=== PATIENT | female | born 1985 | race Caucasian/White ===

== ENCOUNTER → 2020-07-03 12:52 | Outpatient (BNVA) | payer OTHER, SELFPAY | PROVIDERS: Visit Provider Obstetrics & Gynecology ==

== ENCOUNTER 2021-04-22 12:13 | Outpatient (REF) | payer OTHER, SELFPAY ==
[2021-04-22 12:32] LABS: MANUAL DIFF FLAG NO
[2021-04-22 12:51] LABS: Basophils Absolute Auto 0.1 X10*3/uL (0.0-0.2); Basophils Percent Auto 0.5 % (0-2); Eosinophils Absolute Auto 0.9 X10*3/uL (0.0-0.4); Eosinophils Percent Auto 9.3 % (0-4); Hematocrit 39.2 % (37.0-47.0); Hemoglobin 12.6 g/dl (12.0-16.0); Imm Gran Abs Auto 0.01 X10*3/uL (0.00-0.03); Imm Gran Pct Auto 0.1 % (0.0-0.4); Lymphocytes Absolute Auto 3.2 X10*3/uL (1.2-4.9); Lymphocytes Percent Auto 33.4 % (20-40); Mean Corpuscular HGB Conc 32.1 g/dl (31.0-35.0); Mean Corpuscular Hemoglobin 29.4 pg (27.0-33.0); Mean Corpuscular Volume 91.4 fL (80.0-98.0); Mean Platelet Volume 9.6 fL (9.4-12.3); Monocytes Absolute Auto 0.4 X10*3/uL (0.1-1.2); Monocytes Percent Auto 3.9 % (2-11); Neutrophils Percent Auto 52.8 % (45-73); Platelet Count 357 X10*3/uL (160-400); Red Blood Count 4.29 X10*6/uL (4.20-5.50); Red Cell Distribution Width 14.3 % (11.0-16.0); White Blood Count 9.5 X10*3/uL (4.8-10.8)
[2021-04-22 13:22] LABS: Anion Gap 10 (12-20); Blood Urea Nitrogen 15 mg/dL (9-16); Calcium 9.5 mg/dL (8.4-10.2); Carbon Dioxide 22 mmol/L (22-29); Chloride 111 mmol/L (96-108); Estimated Glomerular Filt Rate > 60; Glucose Random 89 mg/dL (60-115); Potassium 4.4 mmol/L (3.3-5.1); Sodium 139 mmol/L (135-145)
== END 2021-04-22 12:14 | disposition home or self-care (01) ==
LOC: HO.LAB 12:13
PROVIDERS: Visit Provider Clinical Nurse Specialist Psychiatric/Mental Health, Child & Adolescent
DX: Z51.81 Encounter for therapeutic drug level monitoring (principal)
CPT/HCPCS: 36415; 80048; 85025

== ENCOUNTER 2022-03-04 11:10 | Outpatient (REF) | payer OTHER, SELFPAY ==
[2022-03-05 03:36] LABS: CT PCR NOT DETECTED (Not Detect.); NG PCR NOT DETECTED (Not Detect.)
[2022-03-05 10:15] LABS: BV Int Neg Control Negative (Negative); BV Int Pos Control Positive (Positive)
[2022-03-08 00:09] LABS: HPV 16 RNA NOT DETECTED (NOT DETECTED); HPV mRNA E6/E7 rflx Detected (Not Detected)
== END 2022-03-04 11:11 | disposition home or self-care (01) ==
LOC: HO.LNP 11:10
PROVIDERS: Visit Provider Advanced Practice Midwife
DX: Z01.419 Encounter for gynecological examination (general) (routine) without abnormal findings (principal); Z11.51 Encounter for screening for human papillomavirus (HPV)
CPT/HCPCS: 87480; 87491; 87510; 87591; 87624; 87625; 87660; 88142

== ENCOUNTER 2022-03-05 08:42 | Outpatient (REF) | payer OTHER, SELFPAY ==
--- NOTE | ~2022-03-05 | MM_ITS ---
EXAMINATION: MM DIAGNOSTIC DIGITAL BREAST TOMOSYNTHESIS, BILATERAL US DIAGNOSTIC ULTRASOUND BREAST, BILATERAL CLINICAL INFORMATION: 36-year-old with palpable areas noted at routine clinical exam right 9:00 and left 2:00. No palpable concern noted by patient. No discharge. No known family history breast cancer. No prior breast imaging. The lifetime risk of breast cancer based on the Tyrer-Cuzick Model is 9%. COMPARISON: None (current study represents initial baseline exam). TECHNIQUE: Digital breast tomosynthesis is performed in both the craniocaudal and mediolateral oblique views along with computer-aided detection (CAD). Synthesized 2D images are generated from the tomosynthesis. Ultrasound bilateral breasts is targeted to the areas of clinical concern outer right breast and upper outer left breast. Grayscale imaging and color Doppler are performed without and with harmonics. FINDINGS: There are scattered areas of fibroglandular density (ACR BI-RADS breast composition Category b). There is no mass or architectural abnormality or abnormal calcifications. No skin thickening or coarsening of the Tyler's ligaments. The axilla and skin contours are unremarkable. No mammographic correlate for clinical concern. Ultrasound bilateral breasts demonstrate no cystic or solid mass, architectural abnormality, or focal duct ectasia. No skin thickening or edema tracking in soft tissue planes. Results are discussed with the patient at time of visit. MM/MM tomosynthesis diagnostic BI IMPRESSION: -No mammographic evidence of malignancy. -Unremarkable bilateral targeted breast ultrasound. ASSESSMENT: BI-RADS 1: Negative RECOMMENDATION: 1. Patient should be managed based on the clinical impression. If clinically indicated, further evaluation may be considered with surgical consult. Decision to proceed with biopsy should be based on clinical grounds and degree of clinical concern. 2. Otherwise, routine annual screening mammography, beginning age 40, or earlier as clinical risk factors warrant. This patient's information was entered into a reminder system with a target due date for their next mammogram.
== END 2022-03-05 08:43 | disposition home or self-care (01) ==
LOC: HO.MAMMO 08:42
PROVIDERS: Visit Provider Advanced Practice Midwife
DX: N63.15 Unspecified lump in the right breast, overlapping quadrants (principal); N63.21 Unspecified lump in the left breast, upper outer quadrant
CPT/HCPCS: 76642; 77062; 77066

== ENCOUNTER 2022-07-29 09:04 | Outpatient (REF) | payer OTHER, SELFPAY ==
[2022-07-29 15:04] LABS: CT PCR NOT DETECTED (Not Detect.); NG PCR NOT DETECTED (Not Detect.)
[2022-07-30 09:17] LABS: BV Int Neg Control Negative (Negative); BV Int Pos Control Positive (Positive)
== END 2022-07-29 09:05 | disposition home or self-care (01) ==
LOC: HO.LNP 09:04
PROVIDERS: Visit Provider Advanced Practice Midwife
DX: N92.1 Excessive and frequent menstruation with irregular cycle (principal); A60.00 Herpesviral infection of urogenital system, unspecified; B37.49 Other urogenital candidiasis; F17.210 Nicotine dependence, cigarettes, uncomplicated; Z87.42 Personal history of other diseases of the female genital tract; Z20.2 Contact with and (suspected) exposure to infections with a predominantly sexual mode of transmission; Z97.5 Presence of (intrauterine) contraceptive device
CPT/HCPCS: 0353U; 87255; 87480; 87510; 87660; 99212

== ENCOUNTER 2023-02-16 13:20 | Outpatient (REF) | payer OTHER, SELFPAY ==
[2023-02-16 18:42] LABS: CT PCR NOT DETECTED (Not Detect.); NG PCR NOT DETECTED (Not Detect.)
[2023-02-17 11:20] LABS: BV Int Neg Control Negative (Negative); BV Int Pos Control Positive (Positive)
== END 2023-02-16 13:21 | disposition home or self-care (01) ==
LOC: HO.LAB 13:20
PROVIDERS: Visit Provider Advanced Practice Midwife
DX: N92.1 Excessive and frequent menstruation with irregular cycle (principal); F17.210 Nicotine dependence, cigarettes, uncomplicated; Z97.5 Presence of (intrauterine) contraceptive device; Z20.2 Contact with and (suspected) exposure to infections with a predominantly sexual mode of transmission
CPT/HCPCS: 0353U; 81025; 87480; 87510; 87660; 99212

== ENCOUNTER 2023-02-16 13:22 | Outpatient (AMB) | payer OTHER, SELFPAY ==
--- NOTE | 2023-02-16 13:27 | A.OFFVIS_ITS ---
Intake Vital Signs 02/16/23 13:28 Height 5 ft 6 in Weight 219 lb BMI 35.3 BP 100/60 Intake Visit Reasons: irregular bleeding Intake Note: Bleeding for two weeks with Nexplanon after intercourse, took nuvaring out 2 days after bleeding started Appliance Service Technician: Appliance Service Technician Present (Triny) Allergies lamotrigine [From LAMICTAL] Allergy (Unknown, Verified 02/16/23 13:30) ANAPHYLAXIS Is last menstrual period known: Yes Last menstrual period: 02/02/23 HPI HPI Comments History of Present Illness Details Patient is here today with concerns of irregular light daily bleeding for the last two weeks. At that time she reports rough sex with her partner. She had been using the Nuvaring and removed it soon afterwards. Admits her partner gets cut from the Nuvaring at times and wonders if she may also have a cut. She denies any UPI since that timeframe. She denies any odor, discharge, urinary symptoms or pelvic pain. Admits she is still smoking. [facility] Social History Patient Tobacco Use Status: Current everyday Tobacco user Cigarettes Per Day: 8 Female Reproductive History Menstrual Age of Menarche: 14 Date of last menstrual period: 02/02/23 Date of last pap smear: 03/04/22 (neg +hpv) History of abnormal pap smear: Yes Review of Systems Const All systems reviewed & are unremarkable except as noted in HPI and below Physical Exam Vital Signs: Last Vital Signs BP 100/60 02/16/23 13:28 BMI result Body Mass Index 35.3 Const General: cooperative, healthy appearing and no acute distress Orientation/consciousness: patient oriented x3 GI Inspection: Yes normal to inspection Palpation (GI): Soft to palpation and Other GI palpation findings present (Nontender) Rectal Exam - Female: visual inspection normal General: Yes bladder normal to palpation External Female Exam: normal appearance of the urethra Speculum Exam - Vagina: normal appearance of the vagina, normal palpation, normal vaginal discharge and other (no lacerations, lesions noted) Speculum Exam - Cervix: normal appearance of the cervix, normal palpation and Other cervical findings present (yellow bloody discharge) Bimanual exam- vagina & uterus: normal bimanual exam, normal palpation, uterine size normal, bladder normal to palpation, normal palpation, uterine shape normal and non-tender Bimanual Exam- Adnexa, other: normal adnexae Neuro General: patient oriented x3 Results AMB Test Urine AMB Test Urine Negative Last Edit by HAO Suresh on 02/16/23 13:41 Results Reviewed Results Reviewed: Laboratory Last Values Tst Clinic Negative 02/16/23 13:41 Assessment & Plan Assessment & Plan (1) Irregular bleeding: Code(s): N92.6 - Irregular menstruation, unspecified (2) Smoker: Code(s): F17.200 - Nicotine dependence, unspecified, uncomplicated Plan: Discussed: Work up for the bleeding to include cultures, and US. Advised NOT to start the Nuvaring-Contraindicated for Nuvaring use and smoking over the age of 35. Risk for CV events incl. stroke. Encouraged tobacco cessation. Condoms or abstinence for now. Schedule a Tubal consult. Offered the IUD: Jah Serrano-she declines. All of her questions and concerns were addressed to the best of my ability and shared decision making. She is agreeable to the plan of care. Orders: Orders AMB HCG Urine Test Today Z32.02 - Encounter for test, result negative Bacterial Vaginosis Panel Today N92.1 - Excessive and frequent menstruation with irregular cycle, Z20.2 - Contact with and (suspected) exposure to infections with a predominantly sexual mode of transmission, Z97.5 - Presence of (intrauterine) contraceptive device CT NG by PCR Today N92.1 - Excessive and frequent menstruation with irregular cycle, Z20.2 - Contact with and (suspected) exposure to infections with a predominantly sexual mode of transmission, Z97.5 - Presence of (intrauterine) contraceptive device US pelvic and transvaginal Today N93.9 - Abnormal uterine and vaginal bleeding, unspecified Coding Level of Care Code Est Pt Level 4 (57764) Diagnoses Irregular bleeding N92.6 Smoker F17.200
[2023-02-16 13:28] VITALS: BP 100/60; BMI 35.3
== END 2023-02-16 14:27 | disposition home or self-care (01) ==
PROVIDERS: Visit Provider Advanced Practice Midwife
DX: N92.6 Irregular menstruation, unspecified (principal); F17.200 Nicotine dependence, unspecified, uncomplicated; Z32.02 Encounter for pregnancy test, result negative
CPT/HCPCS: 99214

== ENCOUNTER 2023-02-16 14:16 | Outpatient (REF) | payer OTHER, SELFPAY | END 2023-02-16 14:17 | disposition home or self-care (01) | LOC: HO.LNP 14:16 | PROVIDERS: Visit Provider Advanced Practice Midwife | DX: Z13.89 Encounter for screening for other disorder (principal) ==

== ENCOUNTER 2023-04-27 09:57 | Outpatient (AMB) | payer OTHER, SELFPAY ==
--- NOTE | 2023-04-27 10:02 | A.OFFVIS_ITS ---
Intake Vital Signs 04/27/23 10:17 Height 5 ft 6 in Weight 218 lb 4.122 oz BMI 35.2 BP 120/86 Intake Visit Reasons: Tubal Consult Allergies lamotrigine [From LAMICTAL] Allergy (Unknown, Verified 02/16/23 13:30) ANAPHYLAXIS HPI HPI Comments History of Present Illness Details Presenting discuss different options of control including sterilization. Last co testing was in 03/10 was negative/HPV positive The patient states she completed her family and is requesting permanent sterilization [facility] Social History Patient Tobacco Use Status: Current everyday Tobacco user Cigarettes Per Day: 8 Female Reproductive History Menstrual Age of Menarche: 14 Date of last menstrual period: 04/07/23 Review of Systems Const All systems reviewed & are unremarkable except as noted in HPI and below Reports as per HPI and Reports no additional complaints GI Reports no additional complaints Reports no additional complaints Physical Exam Vital Signs: Last Vital Signs BP 120/86 04/27/23 10:17 BMI result Body Mass Index 35.2 Assessment & Plan Assessment & Plan (1) Family planning: Code(s): Z30.09 - Encounter for other general counseling and advice on contraception Plan: D/w the patient the different options of Control including but not limited to control pills, Nuvaring, DMPA and Nexplanon, Paraguard and Progesterone IUD, Sterilization, & vasectomy. A more detailed discussion about the pros and cons of each were discussed with the patient. The patient elected to go with tubal sterilization. Different techniques were discussed with the patient including laparoscopic bilateral fallope ring application, bipolar cauterization of Fallopian tubes & bilateral salpingectomy with benefits of reducing ovarian cancer (mentioned to the patient that currently this is the recommended procedure for sterilization). D/w the patient the likelihood of success, the failure rate and risk of ectopic , irreversibility of the procedure , regret rate and complications during procedure including but not limited to: infection, bleeding, possible need for blood transfusion, risk exposure HIV Hep B and C, anesthesia complications, injury to bladder, bowel, ureter blood vessels, vagina by way of perforation requiring a second operation to repair fistula, major surgery requiring colostomy possible removal of the uterus, ovaries and tubes necessating laparotomy. The patient verbalized understanding and stated that she had completed her family and would like to proceed with permanent sterilization so will schedule laparoscopic bilateral sterilization using bilateral cauterization possible bilateral salpingectomies after 4 weeks. [facility] come [email or web address] & since the patient is due for a repeat co testing since her last Pap was negative/HPV positive in 03/10, the patient will come in for an annual well-woman exam within a week. All questions answered. The patient verbalized understanding . (2) HPV in female: Code(s): B97.7 - Papillomavirus as the cause of diseases classified elsewhere Plan: Will schedule co testing in a week check the results if normal proceed with scheduling laparoscopic sterilization Coding Level of Care Code Est Pt Level 3 (43718) Diagnoses Family planning Z30.09 HPV in female B97.7
[2023-04-27 10:17] VITALS: BP 120/86; BMI 35.2
== END 2023-04-27 11:13 | disposition home or self-care (01) ==
LOC: HO.HWS 09:57
PROVIDERS: Visit Provider Obstetrics & Gynecology
DX: Z30.09 Encounter for other general counseling and advice on contraception (principal); B97.7 Papillomavirus as the cause of diseases classified elsewhere
CPT/HCPCS: 99213

== ENCOUNTER → 2023-04-27 09:57 | Outpatient (BNVA) | payer OTHER, SELFPAY | PROVIDERS: Visit Provider Obstetrics & Gynecology | DX: Z30.09 Encounter for other general counseling and advice on contraception (principal); B97.7 Papillomavirus as the cause of diseases classified elsewhere | CPT/HCPCS: 99212 ==

== ENCOUNTER 2023-05-03 09:50 | Outpatient (REF) | payer OTHER, SELFPAY ==
[2023-05-05 21:20] LABS: HPV mRNA E6/E7 rflx Not Detected (Not Detected)
== END 2023-05-03 09:51 | disposition home or self-care (01) ==
LOC: HO.LNP 09:50
PROVIDERS: Visit Provider Obstetrics & Gynecology
DX: Z01.419 Encounter for gynecological examination (general) (routine) without abnormal findings (principal); Z11.51 Encounter for screening for human papillomavirus (HPV)
CPT/HCPCS: 87624; 88142; 99395

== ENCOUNTER 2023-05-03 09:50 | Outpatient (AMB) | payer OTHER, SELFPAY ==
[2023-05-03 09:56] VITALS: BP 112/70; BMI 35.5
--- NOTE | 2023-05-03 09:56 | A.OFFVIS_ITS ---
Intake Vital Signs 05/03/23 09:56 Height 5 ft 6 in Weight 220 lb BMI 35.5 BP 112/70 Intake Visit Reasons: annual Community Placement Worker: Community Placement Worker Present (Triny) Allergies lamotrigine [From LAMICTAL] Allergy (Unknown, Verified 05/03/23 09:56) ANAPHYLAXIS HPI HPI Comments History of Present Illness Details Presenting for annual exam. No complaints. Last Pap/HPV was in 03/10, Pap was negative/HPV E6/E7 positive, HPV 16/18/20 5- [facility] Medical History GERD (gastroesophageal reflux disease) Irritable bowel syndrome with diarrhea Social History Patient Tobacco Use Status: Current everyday Tobacco user Cigarettes Per Day: 8 Female Reproductive History Menstrual Age of Menarche: 14 Total pregnancies: 3 Full term: 2 Number of Living Children: 2 Ab induced: 1 Date of last pap smear: 03/04/22 (+hpv) History of abnormal pap smear: Yes Review of Systems Const All systems reviewed & are unremarkable except as noted in HPI and below Card Reports as per HPI Resp Reports as per HPI GI Reports as per HPI and Reports no additional complaints Reports as per HPI Physical Exam Vital Signs: Last Vital Signs BP 112/70 05/03/23 09:56 BMI result Body Mass Index 35.5 Const General: cooperative, healthy appearing and comfortable Chest Chest palpation & inspection: normal inspection of the chest and normal palpation of entire chest wall Breast/axilla inspection: normal inspection of the breasts and normal inspection of the axillae Breast/axilla palpation: normal palpation of the breasts, normal palpation of the axillae and no axillary lymphadenopathy Resp Effort & Inspection: normal respiratory effort Auscultation: clear to auscultation bilaterally Percussion: percussion normal Cardio Palpation: normal PMI Rate: regular rate Rhythm: regular rhythm Heart sounds: no murmurs and no rubs Peripheral pulses: Peripheral pulses 2+ throughout GI Inspection: Yes normal to inspection Palpation (GI): Soft to palpation, nontender, no guarding, not rigid and No hepatosplenomegaly present Percussion: Yes normal to percussion Auscultation: normal bowel sounds Rectal Exam - Female: deferred General: Yes bladder normal to palpation External Female Exam: No lesion Speculum Exam - Vagina: normal appearance of the vagina, normal palpation, normal vaginal discharge and not erythematous Speculum Exam - Cervix: normal appearance of the cervix and normal palpation Bimanual exam- vagina & uterus: normal bimanual exam, normal palpation, uterine size normal, bladder normal to palpation, consistency normal and normal palpation Bimanual Exam- Adnexa, other: normal adnexae, no masses and no tenderness Assessment & Plan Assessment & Plan (1) Well woman exam with routine gynecological exam: Code(s): Z01.419 - Encounter for gynecological examination (general) (routine) without abnormal findings Plan: Cotesting done. Counseled the patient about the recommended dietary allowance of 1000 mg of Calcium & 600 IU of vitamin D. The patient was instructed to perform monthly self-breast exams and to schedule an annual exam in a year; All questions answered and the patient verbalized understanding. Instructed the patient to schedule annual exam in a year Coding Level of Care Code Est Pt Prev Care 18-39y(33835) Diagnoses Well woman exam with routine gynecological exam Z01.419
== END 2023-05-03 10:22 | disposition home or self-care (01) ==
LOC: HO.HWS 09:50
PROVIDERS: Visit Provider Obstetrics & Gynecology
DX: Z01.419 Encounter for gynecological examination (general) (routine) without abnormal findings (principal)
CPT/HCPCS: 99395

== ENCOUNTER 2023-05-20 14:05 | Outpatient (REF) | payer OTHER, SELFPAY ==
--- NOTE | ~2023-05-20 | US_ITS ---
EXAMINATION: US PELVIS CLINICAL INFORMATION: Abnormal uterine bleeding. LMP unknown. COMPARISON: CT abdomen/pelvis 12/02/2017 TECHNIQUE: Ultrasound of the pelvis is performed using both transabdominal and transvaginal transducers along with Doppler. Transvaginal imaging is performed due to inadequate visualization transabdominally. FINDINGS: Uterus: The uterus is anteverted and measures 8.0 x 3.6 x 4.8 cm. Uterine echotexture is heterogeneous. The endometrial stripe measures 0.7 cm in thickness. Adnexa: There is no pelvic ascites or fluid collection. Right ovary measures 3.2 x 1.5 x 1.6 cm. Left ovary measures 3.0 x 1.4 x 1.6 cm. US/US pelvic and transvaginal IMPRESSION: Unremarkable pelvic ultrasound.
== END 2023-05-20 14:06 | disposition home or self-care (01) ==
LOC: HO.HMGCX 14:05
PROVIDERS: Visit Provider Advanced Practice Midwife
DX: N93.9 Abnormal uterine and vaginal bleeding, unspecified (principal)
CPT/HCPCS: 76830; 76856

== ENCOUNTER 2023-05-27 10:20 | Outpatient (AMB) | payer OTHER, SELFPAY ==
--- NOTE | 2023-05-27 10:38 | A.OFFVIS_ITS ---
Intake Vital Signs 05/27/23 10:42 Height 5 ft 6 in Weight 218 lb 4.122 oz BMI 35.2 BP 122/76 Intake Visit Reasons: pre op/tubal ligation Oncology Technician: Oncology Technician Present Allergies lamotrigine [From LAMICTAL] Allergy (Unknown, Verified 05/03/23 09:56) ANAPHYLAXIS Is last menstrual period known: Yes Last menstrual period: 02/15/20 Post menopausal: No Patient : No Do you need a note to return to daycare/school/sports/work: Yes (for surgery on wednesday) HPI HPI Comments History of Present Illness Details Presenting to discuss laparoscopic sterilization with no complaints. Last co testing in 05/12 was negative [facility] Medical History ADD (attention deficit disorder) GERD (gastroesophageal reflux disease) Irritable bowel syndrome with diarrhea Surgical History History of esophagogastroduodenoscopy (EGD) Social History Patient Tobacco Use Status: Current everyday Tobacco user Cigarettes Per Day: 8 Female Reproductive History Menstrual Age of Menarche: 14 Date of last menstrual period: 02/15/20 Total pregnancies: 2 Full term: 2 Review of Systems Card Reports as per HPI and Reports no additional complaints Resp Reports as per HPI and Reports no additional complaints GI Reports as per HPI and Reports no additional complaints Reports as per HPI Physical Exam Const General: cooperative, healthy appearing and comfortable Resp Effort & Inspection: normal respiratory effort Auscultation: clear to auscultation bilaterally Percussion: percussion normal Cardio Palpation: normal PMI Rate: regular rate Rhythm: regular rhythm Heart sounds: no murmurs and no rubs Peripheral pulses: Peripheral pulses 2+ throughout GI Inspection: Yes normal to inspection Palpation (GI): Soft to palpation, nontender, no guarding, not rigid and No hepatosplenomegaly present Percussion: Yes normal to percussion Auscultation: normal bowel sounds Rectal Exam - Female: deferred Assessment & Plan Assessment & Plan (1) Sterilization: Code(s): Z30.2 - Encounter for sterilization Plan: Discussed with the patient the different options of control including but not limited to, control pills, Nuvaring, DMPA and Nexplanon, Copper and Progesterone IUD, Sterilization, & vasectomy. A more detailed discussion about the pros and cons of each were discussed with the pt. The patient elected to go with tubal sterilization. Different techniques were discussed with the patient including laparoscopic bilateral fallope ring application, bipolar cauterization of Fallopian tubes & bilateral salpingectomy with benefits of reducing ovarian cancer (mentioned to the patient that currently this is the recommended procedure for sterilization). Discussed with the patient the likelihood of success, the failure rate and risk of ectopic , irreversibility of the procedure , regret rate and complications during procedure including but not limited to: inability to perform the procedure for a variety of technical reasons, infection, bleeding, possible need for blood transfusion, risk exposure HIV Hepatitis B and C, anesthesia complications, injury to bladder, bowel, ureter blood vessels, vagina by way of perforation requiring a second operation to repair fistula, major surgery requiring colostomy possible removal of the uterus, ovaries and tubes necessitating laparotomy. The patient verbalized understanding and stated that she had completed her family and is would like to proceed with permanent sterilization. Laparoscopic bilateral sterilization using bilateral cauterization possible bilateral salpingectomies scheduled. All questions answered. The patient verbalized understanding and signed the consent. Coding Level of Care Code Est Pt Level 3 (49163) Diagnoses Sterilization Z30.2
[2023-05-27 10:42] VITALS: BP 122/76; BMI 35.2
== END 2023-05-27 10:44 | disposition home or self-care (01) ==
LOC: HO.HWS 10:20
PROVIDERS: Visit Provider Obstetrics & Gynecology
DX: Z30.2 Encounter for sterilization (principal)
CPT/HCPCS: 99213

== ENCOUNTER → 2023-05-27 10:20 | Outpatient (BNVA) | payer OTHER, SELFPAY | PROVIDERS: Visit Provider Obstetrics & Gynecology | DX: Z01.818 Encounter for other preprocedural examination (principal) | CPT/HCPCS: 99212 ==

== ENCOUNTER 2023-05-28 08:11 | Day surgery (SDC) | payer OTHER, SELFPAY ==
[2023-05-25 14:30] VITALS: BMI 35.5
--- NOTE | 2023-05-27 09:00 | P.CONAN_ITS ---
Documented by User: Marilyn Bernard NP 05/27/23 09:01 HPI - Anesthesia Eval Consult details Narrative: 38yo F for Tubal Ligation Laparoscopic using bipolar cautery,possible Bilateral Salpingectomy PMFSH Active Problems Active Problems: All Active Problems (Updated 05/25/23 @ 14:33 by Nancy Stout RN) HPV in female (Acute) Family planning (Acute) Emilie infection of genital region (Acute) Herpes genitalis (Acute) Breakthrough bleeding with NuvaRing (Acute) Potential exposure to STD (Acute) Well woman exam with routine gynecological exam (Acute) Cigarette smoker motivated to quit (Acute) Vaginal discharge (Acute) Hx of abnormal cervical Pap smear (Acute) control counseling (Acute) Bilateral breast lump (Acute) Nausea (Acute) GERD (gastroesophageal reflux disease) (Acute) Irritable bowel syndrome with diarrhea (Acute) Past Medical History Medical History (Updated 05/28/23 @ 09:01 by Adrianna Cochran RN) Depression ADD (attention deficit disorder) GERD (gastroesophageal reflux disease) Irritable bowel syndrome with diarrhea Surgical History Surgical History History of esophagogastroduodenoscopy (EGD) Social History Social History Patient Tobacco Use Status: Current everyday Tobacco user Tobacco use type: Cigarette Cigarettes Per Day: 9 Use of substances other than those prescribed or required for medical reasons: No Are you DNR?: No Advance Directives: No Advance Directives Information Provided: Yes Meds Allergies Allergy/AdvReac Type Severity Reaction Status Date / Time lamotrigine [From LAMICTAL] Allergy Unknown ANAPHYLAXIS Verified 05/28/23 08:37 Home Medications Medication Instructions Recorded Confirmed Last Taken Type bupropion HCl 150 mg 24 hr tablet, 150 mg PO QAM 02/16/23 05/28/23 Unknown History extended release dextroamphetamine-amphetamine ER 1 cap PO QAM 02/16/23 05/28/23 Unknown History 25 mg 24hr capsule,extend release (Adderall XR) lorazepam 0.5 mg tablet 0.5 mg PO DAILY PRN Anxiety 02/16/23 05/28/23 Unknown History topiramate 100 mg tablet 100 mg PO BID 02/16/23 05/28/23 Unknown History Exam Height,Weight and Vital Signs: Height 5 ft 6 in Weight 99.79 kg Assessment and Plan Assessment Anesthesia Assessment: Chart Reviewed Documented by User: Edd Mena MD 05/28/23 09:56 [facility] Past Medical History Medical History (Updated 05/28/23 @ 09:01 by Adrianna Cochran RN) Depression ADD (attention deficit disorder) GERD (gastroesophageal reflux disease) Irritable bowel syndrome with diarrhea Patient : No Family History Family history of problems with anesthesia: No Surgical History Surgical History History of esophagogastroduodenoscopy (EGD) History of Problems with Anesthesia: No Social History Social History Patient Tobacco Use Status: Current everyday Tobacco user Tobacco use type: Cigarette Cigarettes Per Day: 9 Use of substances other than those prescribed or required for medical reasons: No Are you DNR?: No Advance Directives: No Advance Directives Information Provided: Yes Meds Allergies Allergy/AdvReac Type Severity Reaction Status Date / Time lamotrigine [From LAMICTAL] Allergy Unknown ANAPHYLAXIS Verified 05/28/23 08:37 Home Medications Medication Instructions Recorded Confirmed Last Taken Type bupropion HCl 150 mg 24 hr tablet, 150 mg PO QAM 02/16/23 05/28/23 Unknown History extended release dextroamphetamine-amphetamine ER 1 cap PO QAM 02/16/23 05/28/23 Unknown History 25 mg 24hr capsule,extend release (Adderall XR) lorazepam 0.5 mg tablet 0.5 mg PO DAILY PRN Anxiety 02/16/23 05/28/23 Unknown History topiramate 100 mg tablet 100 mg PO BID 02/16/23 05/28/23 Unknown History Exam Airway Mallampati Class: II TM Dist: >3cm Neck ROM: Full Loose/Missing/Broken Teeth: No Heart: ok Lungs: ok Assessment and Plan Assessment Anesthesia Assessment: Anesthesia Plan Discussed Final Anesthetic Review Family History of Problems with Anesthesia: No History of Problems with Anesthesia: No NPO: Yes ASA Class: II Final Preanesthetic Review: No Changes in Pt Med Stat, Meds/Allgs Chart Reviewed, Consent Obtained/Reviewed and Anes Risks/Benef Reviewed Patient Risk: Intermediate Procedure Risk: Intermediate Anesthetic Plan Anesthetic Plan: GA and Agree w/ Assess. and Plan Disposition: Standard PACU
[2023-05-28] VITALS (12 sets, daily range): BP systolic 95–127; BP diastolic 53–82; PULSE 69–98; RESP 15–20; TEMP 36.1–36.2; O2SAT 93–98; BMI 35.2
[2023-05-28 08:37] LABS: UPreg QC Valid YES; Urine Pregnancy NEGATIVE (NEGATIVE)
[2023-05-28] MEDS: Lactated Ringers 1,000 ML 100 ML IVCONT (08:56)
--- NOTE | 2023-05-28 09:12 | MHC.SHP ---
Pre-Procedural Eval Section A - 24 Hr Update-Section A only Date of Service: 05/28/23 The patient is an INPATIENT: No Changes since office visit: No Cold of Flu in the past 2 weeks, No New Medical Problems, No Changes in Medication and No Patient answered all questions The patient has been examined within 24 hours of the surgical procedure. The History & Physical has been completed within 30 days and I have reviewed it.: Yes Section B - Complete if H&P > 30 days Chief Complaint: Encounter for other general counseling and advice Allergies: Allergies Allergy/AdvReac Type Severity Reaction Status Date / Time lamotrigine [From LAMICTAL] Allergy Unknown ANAPHYLAXIS Verified 05/28/23 08:37 Plan Diagnosis/Plan: Unchanged I have reviewed the history and physical and performed a pertinent physical examination on my patient. No changes have occurred unless specified. Time Spent With Patient Time: Total time managing care of this patient today ____ minutes.
--- NOTE | 2023-05-28 10:30 | PM.OP ---
Brief Operative Note Date of Service: 05/28/23 Pre-op diagnosis: Completed family, requesting permanent sterilization Post-op diagnosis: same Procedure: Laparoscopic bliateral salpingectomy Surgeon: Scott Torres MD Anesthesia: GETA Was an Digital Photo Printer used for this Procedure?: No Estimated blood loss (mL): 0 Pathology: other (Right & left fallopian tubes) Condition: stable Disposition: PACU
--- NOTE | 2023-05-28 10:31 | W.PM.OPN ---
Operative Note Operative Note Date of Service: 05/28/23 Narrative: PREOPERATIVE DIAGNOSIS:?Completed family requesting?permanent sterilization POSTOPERATIVE DIAGNOSIS:?Completed family requesting?permanent sterilization QBL: Minimal Anesthesia: GETA SURGEON:? Scott Torres MD?? Home Based Assistant: Complications: None Pathology: Right and left Fallopian tubes? DESCRIPTION OF PROCEDURE:?The patient was taken to the OR where general anesthesia was easily obtained. The patient was then prepped and draped in a sterile fashion and placed in dorsal lithotomy position. A speculum was introduced into the patient?s vagina for cervical visualization. Once the cervix was visualized, a single-toothed tenaculum was applied to the upper lip of the cervix, and a Humi manipulator was introduced into the patient?s cervix. The single tooth tenaculum was then removed and hemostasis was assured?using pressure. a Cox catheter?was inserted and clear urine started draining. Gloves were changed to clean ones. Attention was then drawn to the abdomen where a 10 mm longitudinal incision was done intra umbilical and carried down all the way to the fascia, which was tented?up using 2 Gregg clamps and was nicked in the midline and then extended on both end of the incision?, them using 2 pick?ups the peritoneum?was entered with Metzenbaum scissors and under direct visualization, a 10 mm Irvin trocar was introduced into the patient?s abdomen. Once intraperitoneal placement was confirmed with direct visualization, pneumoperitoneum was started & was easily obtained.Then, two fingerbreadths above the pubic symphysis and towards the?right lower quadrant, under direct visualization, a 5 mm trocar was then introduced into the patient?s abdomen. and a 3rd one on the left?lower quadrant was placed?in a similar manner. The patient was placed in Trendelenburg position, Inspection revealed normal pelvic structures & bilateral ovaries and fallopian tubes. Attention was then drawn to the left fallopian tube. The IP ligament was identified and fallopian tube was then grasped by the fimbria and incised from the mesosalpinx using ligasure device, using cautery for hemostasis and cutting afterwards a bite at a time all the way to the cornual end of the left tube. The same was done?on the?right fallopian tube. Good hemostasis was noted from both fallopian tube sites and the operative site. Specimen were then removed from the patient?s abdomen. Copious irrigation was done. Once good hemostasis was noted from the patient?s abdomen, pneumoperitoneum was deflated and all trocars were removed. Infraumbilical fascia was closed with 0 Vicryl and interrupted suture. The skin was closed with 4-0 Vicryl. The Right and left?lower quadrant ports were closed with 0 Vicryl. Bupivicaine 0.25 10 cc were injected subcuticularly in the 3 incisions. Then speculum was put back in the vagina inspection revealed?hemostasis at the site of the tenaculum, the?humi manipulator was removed? and Cox was draining clear urine was taken out too. Sponge, lap and needle counts were correct x2. The patient was taken to the recovery room in stable condition.
[2023-05-28] MEDS: HYDROmorphone HCl 0.5 MG/0.5 ML SYRINGE IVPUSH (11:15)
[2023-05-28] MEDS: fentaNYL citrate/PF 100 MCG/2 ML VIAL 50 MCG IVPUSH (11:28)
[2023-05-28] MEDS: Acetaminophen 325 MG TABLET 650 MG PO (11:55)
== END 2023-05-28 12:32 | disposition home or self-care (01) ==
PROVIDERS: Nurse Practitioner; Visit Provider Obstetrics & Gynecology
PROC: (CPT 58670; principal; 2023-05-28 09:00)
DX: Z30.2 Encounter for sterilization (principal); F17.210 Nicotine dependence, cigarettes, uncomplicated
CPT/HCPCS: 58661; 81025; 88302; J0665; J1170; J1885; J2250; J2405; J2704; J3010

== ENCOUNTER → 2023-05-28 08:11 | Outpatient (BNV) | payer OTHER, SELFPAY | PROVIDERS: Visit Provider Obstetrics & Gynecology | DX: Z30.2 Encounter for sterilization (principal) | CPT/HCPCS: 58661 ==

== ENCOUNTER → 2023-06-17 11:42 | Outpatient (BNVA) | payer OTHER, SELFPAY | PROVIDERS: Visit Provider Obstetrics & Gynecology | DX: Z48.816 Encounter for surgical aftercare following surgery on the genitourinary system (principal); Z98.51 Tubal ligation status | CPT/HCPCS: 99212 ==

== ENCOUNTER 2023-06-17 11:43 | Outpatient (AMB) | payer OTHER, SELFPAY ==
[2023-06-17 11:44] VITALS: BP 110/70; BMI 35.5
--- NOTE | 2023-06-17 11:44 | MHC.OFFVIS ---
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 The patient has no complaints. No feverishness, chills, no pain at the incision sites, no GI/ symptoms. The pathology showed bilateral normal fallopian tubes with no evidence of abnormal pathology. [facility] Medical History Depression ADD (attention deficit disorder) GERD (gastroesophageal reflux disease) Irritable bowel syndrome with diarrhea Surgical History History of esophagogastroduodenoscopy (EGD) Social History Patient Tobacco Use Status: Current everyday Tobacco user Tobacco use type: Cigarette Cigarettes Per Day: 9 Female Reproductive History Menstrual Age of Menarche: 14 Physical Exam Vital Signs: Last Vital Signs BP 110/70 06/17/23 11:44 BMI result Body Mass Index 35.5 GI Other: Incisions clean dry and intact Palpation (GI): Soft to palpation and nontender Assessment & Plan Assessment & Plan (1) Sterilization: Comment: Status post bilateral laparoscopic salpingectomies Code(s): Z30.2 - Encounter for sterilization Plan: Discussed the patient the intraoperative findings, the pathology, the patient was reassured. Instructions given to patient to call in case of temperature above 100.4, nausea or vomiting, and pain, heavy vaginal bleeding, incisional redness, gapping or discharge. All questions answered, the patient verbalized understanding Coding Level of Care Code Est Pt Level 3 (79044) Diagnoses Sterilization Z30.2
== END 2023-06-17 12:23 | disposition home or self-care (01) ==
PROVIDERS: Visit Provider Obstetrics & Gynecology
DX: Z30.2 Encounter for sterilization (principal)
CPT/HCPCS: 99213

== ENCOUNTER 2023-09-17 09:12 | Outpatient (AMB) | payer OTHER, SELFPAY ==
--- NOTE | 2023-09-17 09:39 | MHC.OFFWIV ---
Intake Vital Signs 09/17/23 09:48 Height 5 ft 6 in Weight 232 lb 6 oz BMI 37.5 BP 98/60 Blood Pressure Location Rt radial Position Sitting Pulse 73 Pulse Source Pulse Oximeter Temp 98 F Temp Source Oral Pulse Oximetry (%) 98 Oxygen Delivery Method Room Air Intake Visit Reasons: Strep throat Intake Note: Pain in the back of throat Patient Tobacco Use Status: Current everyday Tobacco user Equipment Sterilizer Required: No Allergies lamotrigine [From LAMICTAL] Allergy (Unknown, Verified 09/17/23 10:01) ANAPHYLAXIS Medication List - Last Reconciled 09/17/23 by Sara Su, DETAIL MAKER AND FITTER- bupropion HCl XL 150 mg PO QAM dextroamphetamine-amphetamine 25 mg ER (Adderall XR) 1 cap PO QAM lorazepam 0.5 mg PO DAILY PRN topiramate 100 mg PO BID Do you need a note to return to daycare/school/sports/work: No HPI HPI Comments History of Present Illness Details Here today with mild sore throat started last night Denies any other sx USed OTC meds w/o relief PFSH Medical History Depression ADD (attention deficit disorder) GERD (gastroesophageal reflux disease) Irritable bowel syndrome with diarrhea Surgical History History of esophagogastroduodenoscopy (EGD) Social History Patient Tobacco Use Status: Current everyday Tobacco user Tobacco use type: Cigarette Cigarettes Per Day: 9 Female Reproductive History Menstrual Age of Menarche: 14 Review of Systems Const All systems reviewed & are unremarkable except as noted in HPI and below Physical Exam Vital Signs: Last Vital Signs Temp 98 F 09/17/23 09:48 Pulse 73 09/17/23 09:48 BP 98/60 09/17/23 09:48 Pulse Ox 98 09/17/23 09:48 Oxygen Delivery Method Room Air 09/17/23 09:48 BMI result Body Mass Index 37.5 Const Other: Awake alert NAD Sclera and conjunctiva clear bilat Nares patent, turbinates pale and edematous, no sinus tenderness with palpation bilat TM intact and clear bilat MMM, pharynx WNL RRR LS CTAB Results AMB Rapid Strep AMB Rapid Strep Negative Last Edit by Mica Nelson CMA on 09/17/23 10:04 Assessment & Plan Assessment & Plan (1) Allergic pharyngitis: Code(s): J02.9 - Acute pharyngitis, unspecified Plan: . Plan . Orders: Orders AMB Rapid Strep Screen Today J02.9 - Acute pharyngitis, unspecified Medications: New fluticasone propionate 50 mcg/actuation administer into each nostril 1 spray intranasal BID 16 grams 0RF cetirizine (Zyrtec) 10 mg PO DAILY 30 tabs 0RF Patient Instructions: If the above treatment does not work, if you develop a fever, chills, worsening sore throat please return to the office. Coding Level of Care Code Est Pt Level 4 (72384) Diagnoses Allergic pharyngitis J02.9
[2023-09-17 09:48] VITALS: BP 98/60; PULSE 73; TEMP 36.6; O2SAT 98; BMI 37.5
== END 2023-09-17 10:09 | disposition home or self-care (01) ==
PROVIDERS: Visit Provider Nurse Practitioner Family
DX: J02.9 Acute pharyngitis, unspecified (principal)
CPT/HCPCS: 87880; 99214